=== PATIENT | female | born 1990 | race Caucasian/White ===

== ENCOUNTER → 2018-07-23 | Outpatient (CLI) | payer OTHER ==
--- NOTE | 2018-07-23 11:17 | Diagnostic Imaging Report ---
PROCEDURE: MRI left joint lower extremity without contrast. TECHNIQUE: Multiplanar, multisequence non contrast-enhanced MRI of the left lower extremity was accomplished. INDICATION: Left ankle pain. The marrow signal intensity of the ankle appears normal. No marrow edema or evidence of fracture is identified. The Achilles tendon demonstrates normal signal intensity and normal morphology. Oil marker was placed at the area of pain in the lateral ankle. This is posterior to the peroneus brevis and longus tendons. The peroneus brevis and longus tendons appear to be intact. No tear is seen. Posterior tibialis, flexor digitorum, flexor hallucis longus tendons are intact. Anterior and posterior syndesmotic ligaments as well as anterior and posterior talofibular ligaments appear to be intact. Deep and superficial bands of the deltoid appear to be intact. The articular cartilage is unremarkable. No osteochondral defect is seen. Talar dome is unremarkable. IMPRESSION: Essentially unremarkable MRI of the left ankle. No definite ligamentous or tendinous abnormality is identified. Dictated by: Dictated on workstation # [id number]
== END ==
LOC: RAD 08:29
PROVIDERS: ATTEND Orthopaedic Surgery
DX: M25.572 Pain in left ankle and joints of left foot (principal)
CPT/HCPCS: 73721

== ENCOUNTER → 2020-07-11 | Outpatient (CLI) | payer OTHER, BC ==
[~2020-07-11] VITALS: Ht 165.1 cm; Wt 90.9 kg
[~2020-07-11] MED LIST: GADOBUTROL 7.5 MMOL/7.5 ML (GADAVIST) VIAL IV ONE; IOHEXOL 300 MG/ML 50 ML (OMNIPAQUE 300) VIAL IV ONE
--- NOTE | 2020-07-11 14:28 | Diagnostic Imaging Report ---
INDICATION: Left shoulder pain. DETAILS OF THE PROCEDURE: The patient was brought to the procedure room and placed on the table in the supine position. The skin of the left shoulder was prepped and draped in the usual sterile fashion. A small amount of 1% lidocaine was utilized for local anesthesia. A 22-gauge needle was advanced into the left shoulder at the rotator interval. A 15 mL solution of iodinated contrast, normal saline, and gadolinium was injected under fluoroscopic observation. The needle was withdrawn and hemostasis was obtained. A total of 19 seconds of fluoroscopic time was utilized. The patient tolerated the procedure well and was sent to MRI in satisfactory condition. IMPRESSION: Successful left shoulder injection of a gadolinium contrast solution using fluoroscopy. Dictated by: Dictated on workstation # [id number]
--- NOTE | 2020-07-11 15:57 | Diagnostic Imaging Report ---
PROCEDURE: MRI left joint upper extremity with contrast. TECHNIQUE: Multiplanar, multisequence contrast-enhanced MRI of the left upper extremity was accomplished. INDICATION: History of prior shoulder surgery in 2007 and 2009. Pain. EXAMINATION: MRI of the left shoulder with contrast from 07/11/2020 COMPARISONS: None FINDINGS: The supraspinatus and infraspinatus tendons intact. The subscapularis tendon is intact. The long head of the biceps tendon lies in the bicipital groove and is also intact. There is a small focal irregularity along the posterior inferior labrum with undermining of contrast in the region suggesting a small labral tear. No displaced labral material appreciated. The biceps tendon anchor is intact. Muscle volume is preserved. Visualized axilla unremarkable. IMPRESSION: 1. Suspected tear of the posterior inferior labrum. Rotator cuff intact. Dictated by: Dictated on workstation # [id number]
== END ==
LOC: RAD 13:30
PROVIDERS: ATTEND Orthopaedic Surgery
DX: M75.112 Incomplete rotator cuff tear or rupture of left shoulder, not specified as traumatic (principal)
CPT/HCPCS: 23350; 73040; 73222